=== PATIENT | male | born 1955 | race Caucasian/White ===

== ENCOUNTER → 2017-05-18 | Outpatient (CLI) | payer OTHER ==
[~2017-05-18] MED LIST: AMLO-172 PO; ATOR40TA16 PO; AUGM875 PO; BYST10TA2 PO; FOLI400T PO; METO25 PO; MULT1TAB PO; OXYC1TAB36 PO; PRED20 PO; TIZA4CAP3 PO
[2017-05-18 09:06] LABS: AUTOMATED NEUTROPHIL # 4.3 TH/MM3 (1.8-7.7); BASOPHIL # 0.1 TH/MM3 (0-0.2); BASOPHIL % 0.7 % (0.0-2.0); EOSINOPHIL # 0.1 TH/MM3 (0-0.4); EOSINOPHIL % 1.5 % (0.0-4.0); HEMOGLOBIN 13.3 GM/DL (13.0-17.0); LYMPH % 34.5 % (9.0-44.0); LYMPHOCYTE # 2.5 TH/MM3 (1.0-4.8); MEAN CELL VOLUME 86.1 FL (80.0-100.0); MEAN CORPUSCULAR HEMOGLOBIN 29.4 PG (27.0-34.0); MEAN CORPUSCULAR HGB CONC 34.2 % (32.0-36.0); MEAN PLATELET VOLUME 8.2 FL (7.0-11.0); MONO % 5.3 % (0.0-8.0); MONOCYTE # 0.4 TH/MM3 (0-0.9); PLATELET COUNT 284 TH/MM3 (150-450); RED BLOOD COUNT 4.52 MIL/MM3 (4.50-5.90); RED CELL DISTRIBUTION WIDTH 12.3 % (11.6-17.2); WHITE BLOOD COUNT 7.3 TH/MM3 (4.0-11.0)
[2017-05-18 09:21] LABS: INTERNATIONAL NORMALIZED RATIO 1.2 RATIO
[2017-05-18 09:24] LABS: BILIRUBIN, URINE NEG (NEG); BLOOD, URINE NEG (NEG); GLUCOSE,URINE NEG (NEG); KETONE, URINE NEG (NEG); MUCUS URINE FEW /lpf (OCC); NITRITE,URINE NEG (NEG); SQUAMOUS EPITHELIAL CELL URINE <1 /hpf (0-5); URINE COLOR YELLOW (YELLW/STRAW); URINE LEUKOCYTE ESTERASE TRACE (NEG)
[2017-05-18 09:29] LABS: AST (GOT) 19 U/L (15-37); BICARBONATE 25.7 MEQ/L (21.0-32.0); BLOOD UREA NITROGEN 17 MG/DL (7-18); CALCIUM 10.1 MG/DL (8.5-10.1); CHLORIDE 105 MEQ/L (98-107); CREATININE 1.03 MG/DL (0.60-1.30); GLOMERULAR FILTRATION RATE 73 ML/MIN (>89); GLUCOSE,FASTING 100 MG/DL (74-99); SODIUM (NA) 139 MEQ/L (136-145)
[2017-05-18 09:31] LABS: ALT (GPT) 17 U/L (12-78)
[2017-05-18 09:33] LABS: ALKALINE PHOSPHATASE 104 U/L (45-117); TOTAL BILIRUBIN ADULT 0.5 MG/DL (0.2-1.0); TOTAL PROTEIN 7.6 GM/DL (6.4-8.2)
--- NOTE | 2017-05-18 09:44 | RADRPT ---
EXAM DATE/TIME: 05/18/2017 09:26 [facility] COMPARISON: No previous studies available for comparison. INDICATIONS : Evaluate for pneumonia, pneumothorax, and communicable disease. Pre-op Lumbar Discectomy. MEDICAL HISTORY : None. SURGICAL HISTORY : Kyphoplasty 09/2016. ENCOUNTER: Initial ACUITY: 1 day PAIN SCORE: 0/10 LOCATION: Bilateral chest FINDINGS: PA and lateral views of the chest demonstrate a normal-sized cardiac silhouette. There is no effusion , consolidation, or pneumothorax. The bones and soft tissues demonstrate no acute abnormality. There are degenerative changes of the thoracic spine. CONCLUSION: No acute cardiopulmonary abnormality is identified. Donell Alcazar MD on May 18, 2017 at 9:42 Board Certified Radiologist. This report was verified electronically.
--- NOTE | 2017-05-18 21:55 | EKG ---
Date Performed: 05/18/2017 Time Performed: 08:49:20 PTAGE: 61 years EKG: Sinus rhythm SEPTAL MYOCARDIAL INFARCTION, OF INDETERMINATE AGE ABNORMAL ECG NO PREVIOUS TRACING DOCTOR: Raven Fernandez Interpretating Date/Time 05/18/2017 21:55:03
== END ==
LOC: CPRE 08:22
PROVIDERS: ATTEND Neurological Surgery
DX: Z01.812 Encounter for preprocedural laboratory examination (principal); Z01.810 Encounter for preprocedural cardiovascular examination; Z01.811 Encounter for preprocedural respiratory examination; M48.062 Spinal stenosis, lumbar region with neurogenic claudication
CPT/HCPCS: 36415; 71046; 80053; 81001; 85025; 85610; 85730; 87640; 87641; 93005

== ENCOUNTER 2017-05-19 06:14 | Observation (INO) | payer OTHER ==
[~2017-05-19] VITALS: Ht 185.4 cm; Wt 84.4 kg
[~2017-05-19 06:14] MED LIST changes: -AUGM875 PO; -METO25 PO; -PRED20 PO
[2017-05-19] MEDS ORDERED: ceFAZolin 2 GM PREMIX 50 ML IV SCH (06:45)
[2017-05-19] MEDS ORDERED: METOPROLOL TARTRATE 25 MG TAB PO PRN (06:45)
[2017-05-19] MEDS ORDERED: LACTATED RINGER'S 1000 ML IV PRN (06:45)
[2017-05-19] MEDS ORDERED: CHLORHEXIDINE GLUCONATE 2 % 1 PACK (2 CLOTHS) TOPICAL PRN (06:45)
[2017-05-19] MEDS ORDERED: POVIDONE IODINE 5% (ANTISEPSIS KIT) 4 APPLICATIONS EACH NARE PRN (06:45)
[2017-05-19] MEDS ORDERED: SODIUM CHLORID 0.9% 500 ML IV PRN (06:45)
[2017-05-19] MEDS ORDERED: BYST10TA2 PO (07:06)
[2017-05-19] MEDS ORDERED: AMLO-172 PO (07:06)
[2017-05-19] MEDS ORDERED: BUPIVACAINE/EPINEPHRINE 0.5% PF 30 ML VIAL ONE (07:34)
[2017-05-19] MEDS ORDERED: THROMBIN (TOPICAL) 5,000 UNIT VIAL ONE (07:34)
[2017-05-19] MEDS ORDERED: GELFOAM SIZE 100 ONE (07:34)
[2017-05-19] MEDS ORDERED: methylPREDNISolone ACETATE 40 MG/ML VIAL ONE (07:34)
[2017-05-19] MEDS ORDERED: GENTAMICIN SULFATE 80 MG/2 ML VIAL ONE (07:35)
[2017-05-19] MEDS ORDERED: ACETAMINOPHEN 1000 MG/100 ML 0 ML IV ONE (08:08)
[2017-05-19] MEDS ORDERED: ARTIFICIAL TEARS OPTH OINT 3.5 APPLIC/3.5 GM TUBO ONE (08:08)
[2017-05-19] MEDS ORDERED: FAMOTIDINE 20 MG/2 ML VIAL ONE (08:11)
[2017-05-19] MEDS: CHLORHEXIDINE GLUCONATE 2 % 1 PACK (2 CLOTHS) TOPICAL SCH (09:00)
[2017-05-19] MEDS ORDERED: FUROSEMIDE 40 MG/4 ML VIAL ONE (09:25)
[2017-05-19] MEDS ORDERED: RESP: ALBUTEROL 2.5 MG/3 ML NEB (PRN) ONE (09:42)
[2017-05-19] MEDS ORDERED: DO NOT ADM ANY ANTICOAGULANT DRUGS PRN (11:34)
[2017-05-19] MEDS: NS + KCL 20 MEQ INJ 1,000 ML IV SCH ×2 (11:47→22:12)
[2017-05-19] MEDS ORDERED: DEXAMETHASONE SOD PHOS 4 MG/ML VIAL IV ONE (12:00)
[2017-05-19] MEDS ORDERED: MORPHINE SULFATE 4 MG/ML INJ IV PUSH PRN ×2 (12:00)
[2017-05-19] MEDS ORDERED: GLYCOPYRROLATE 1 MG/5 ML SYRINGE IV PUSH ONE (12:00)
[2017-05-19] MEDS ORDERED: PROPOFOL 200 MG/20 ML AMP IV ONE (12:00)
[2017-05-19] MEDS ORDERED: ONDANSETRON HCL 4 MG/2 ML VIAL IV ONE (12:00)
[2017-05-19] MEDS ORDERED: oxyCODONE/ACETAMINOPHEN 10 MG/325 MG TAB PO PRN ×2 (12:00→13:45)
[2017-05-19] MEDS ORDERED: LACTATED RINGER'S 1000 ML INJ 1,000 ML IV ONE (12:00)
[2017-05-19] MEDS ORDERED: PHENYLEPHRINE HCL 10 MG/ML VIAL IV ONE (12:00)
[2017-05-19] MEDS ORDERED: PHENYLEPH/NS 1000 MCG/10 ML SYR IV ONE (12:00)
[2017-05-19] MEDS ORDERED: ACETAMINOPHEN/HYDROcodone 325 MG/10 MG TAB PO PRN ×2 (12:00)
[2017-05-19] MEDS ORDERED: ACETAMINOPHEN 325 MG TAB PO PRN (12:00)
[2017-05-19] MEDS ORDERED: LIDOCAINE HCL 1% PF 5 ML SYRINGE OTHER ONE (12:00)
[2017-05-19] MEDS ORDERED: ROCURONIUM INJ 50 MG/5 ML SYRINGE IV PUSH ONE (12:00)
[2017-05-19] MEDS ORDERED: NEOSTIGMINE 5 MG/5 ML SYRINGE IV PUSH ONE (12:00)
[2017-05-19] MEDS ORDERED: MIDAZOLAM HCL 2 MG/2 ML VIAL ONE (12:18)
--- NOTE | 2017-05-19 12:27 | RADRPT ---
EXAM DATE/TIME: 05/19/2017 09:38 [facility] COMPARISON: No previous studies available for comparison. INDICATIONS : L4-5 laminectomy, foraminotomy, diskectomy. MEDICAL HISTORY : SURGICAL HISTORY : None. ENCOUNTER: Initial ACUITY: 1 day PAIN SCORE: Non-responsive. LOCATION: [facility] FINDINGS: A single lateral view of the lumbar spine was performed. There is normal alignment of the vertebral bodies without evidence of subluxation. Vertebral body height and disc space height is maintained. CONCLUSION: Metallic probe directed at L4.. Tomas Lorenz MD FACR on May 19, 2017 at 12:26 Board Certified Radiologist. This report was verified electronically.
--- NOTE | 2017-05-19 12:27 | RADRPT ---
EXAM DATE/TIME: 05/19/2017 09:38 [facility] COMPARISON: No previous studies available for comparison. INDICATIONS : L3-4 laminectomy and diskectomy, foraminotomy MEDICAL HISTORY : None. SURGICAL HISTORY : None. ENCOUNTER: Initial ACUITY: 1 day PAIN SCORE: Non-responsive. LOCATION: lumbar spine . CONCLUSION: Probe at L3-L4 Tomas Lorenz MD FACR on May 19, 2017 at 12:26 Board Certified Radiologist. This report was verified electronically.
[2017-05-19] MEDS ORDERED: *morphine SULFATE 10 MG/ML PERIprocedure ONLY ONE ×2 (13:23→14:20)
[2017-05-19] MEDS: ceFAZolin 2 GM PREMIX 50 ML IV SCH ×2 (15:00→22:12)
--- NOTE | 2017-05-19 17:00 | PD.OP ---
Operative Report Date of Surgery: May 19, 2017 Preoperative Diagnosis: Lumbar spinal stenosis Postoperative Diagnosis: Lumbar spinal stenosis Procedure: L3-4, L4-5 decompressive hemilaminectomy, mesial facetectomy, foraminotomy, microsurgical resection of the disk Anesthesia: general Surgeon: Duncan Watson Seedling Sorter(s): Rose Hopper Resident Surgeon: INDICATIONS FOR THE SURGICAL PROCEDURE Mr Cook is a 61 year-old male who presented with intractable back pain and dayna evidence of L4 and L5 lower extremity radiculopathy. He failed maximum nonsurgical management including multiple modalities of conservative treatment as well as pain management interventions by an interventional pain specialist. A surgical decompression was indicated as a last resort. The [id number] details of the procedure, indications, alternatives, risks and potential complications were fully discussed with the patient. The patient fully understood. All the questions were answered. No guarantees were given. The patient voiced requesting the procedure and provided informed consents. The patient was offered the alternative of delaying the procedure and continuing with nonsurgical management. DETAILS OF THE SURGICAL PROCEDURE After the induction of general anesthesia, endotracheal intubation was performed. A Britton catheter, bilateral RADHA hose and sequential compression devices were placed and kept throughout the procedure. The patient was positioned prone on a Ghassan table over a Min frame. All pressure points were carefully padded with eggcrate mattress. The eyes were tapped shut after ointment was applied by the anesthesiologist to prevent corneal abrasion. A Pam hugger was placed over the exposed lower body to maintain control of the core body temperature. The lower lumbar region was prepped and draped in the usual sterile fashion. A spinal needle was placed on the paraspinal muscle and a cross-table lateral x-ray performed with a C-arm. The skin incision was made over the spinous process of L3, L4 and L5 along the midline. Small subcutaneous bleeders were controlled with a bipolar. The subcutaneous tissue and thoracolumbar fascia was opened with the Bovie and the spinous process of L4 and L5 were exposed. Then, using a Tejada elevator and a Bovie a subperiosteal dissection was performed over the spinous process lamina and facet at L3, L4 and L5 on the right side. A microdiscectomy self-retaining retractor was placed and an instrument was placed underneath the lamina of L5, and another cross-table lateral x-ray performed for radiological confirmation of the level. At this point in the procedure the operating microscope was draped in the usual sterile fashion and brought to the field. The rest of the surgical procedure was performed using microsurgical dissection technique with exception of the closure. Once the level was confirmed, a TPS drill brought to the field and a hemilaminectomy was performed at L3-4, and L4-L5 on the right side in standard fashion using the 4mm Kell drill bit, exposing the ligamentum flavum. The superior free border of the ligamentum flavum was from the dura with a ligament dissector and the ligamentum flavum was carefully removed with a 3 mm thin footplate Kerrison. The ligament Flavum and facets were significantly hypertrophic resulting on mass effect on the dural sac. Then, the medial aspect of the facet was drilled and undermined and the exiting L4 and L5 nerve root were identified and followed towards the foramen. A foraminotomy was performed with a 3 mm Kerrison. Then, the TPS drill was used to undermine the base of the spinous process, in order to carry out the decompression across the midline to the contralateral side. The ligamentum flavum across the midline was dissected from the dura with a ligament dissector and carefully removed with a 3 mm thin footplate Kerrison. An appropriate decompression of the dural sac and nerve root was achieved. Epidural veins located laterally to the dural sac were carefully coagulated with a bipolar and incised with microscissors. Gentle medial retraction of the dural sac allowed inspection of the disc spaces L3-4, and L4-5. The patient had a broad-based disc protusion which combined with the hypertrophic facets and ligamentun flavum was producing significant stenosis with mass effect on the dural sac and nerve root. Microdiscectomy was then deemed necessary at L4-5. The annulus fibrosus was thoroughly coagulated with the bipolar and incised with a #10 blade. Then, a microdiscectomy was carried out in the standard fashion using straight and up-biting pituitary forceps. A reverse angle curet was used to push the extruded disc fragments into the disc space so they could be removed with pituitary forceps. Special attention was placed on the middle nerve root and axilla of the nerve root where disc fragments were found, which were carefully dissected and pushed into the disc space and removed with the Kerrison. A good decompression was achieved. The disc space was then irrigated with antibiotic solution. The incision was then thoroughly irrigated with antibiotic solution and hemostasis secured with the bipolar. A Valsalva maneuver failed to show any cerebrospinal fluid leak or bleeding. The incision was irrigated and closed in layers. 0 Vicryl with interrupted sutures was used to close the thoracolumbar fascia and superficial fascia. The subcutaneous tissue was closed with 3-0 Vicryl. The skin was closed with 4-0 running subcuticular Vicryl. Dermabond was applied to the skin. At the end of the procedure, the sponge, needle and instrument counts were all correct. Estimated blood loss was less than 60 cc. No blood transfusion was given. No intraoperative complications occurred. The patient received prophylactic antibiotics. The patient was then extubated and transferred to the recovery room in stable condition. Duncan Watson MD May 19, 2017 17:00
[2017-05-19] MEDS: oxyCODONE/ACETAMINOPHEN 10 MG/325 MG TAB PO PRN ×2 (17:45→22:13)
[2017-05-19 18:10] VITALS: BP 106/57; PULSE 71; RESP 18; TEMP 97.2; O2SAT 94
[2017-05-19 19:00] VITALS: BP 108/62; PULSE 72; RESP 18; TEMP 97.9; O2SAT 96
[2017-05-19] MEDS: DOCUSATE SODIUM 100 MG CAP PO SCH (20:26)
[2017-05-19] MEDS ORDERED: VALSARTAN 160 MG TAB PO SCH (21:00)
[2017-05-19] MEDS ORDERED: NEBIVOLOL 10 MG TAB PO SCH (21:00)
[2017-05-19] MEDS ORDERED: ATORVASTATIN 40 MG TAB PO SCH (21:00)
[2017-05-20 00:15] VITALS: BP 114/57; PULSE 81; RESP 18; TEMP 98.4; O2SAT 97
[2017-05-20 04:35] VITALS: BP 119/60; PULSE 79; RESP 18; TEMP 97; O2SAT 98
[2017-05-20] MEDS: oxyCODONE/ACETAMINOPHEN 10 MG/325 MG TAB PO PRN ×2 (04:35→08:27)
[2017-05-20] MEDS: ceFAZolin 2 GM PREMIX 50 ML IV SCH (06:03)
[2017-05-20] MEDS: NS + KCL 20 MEQ INJ 1,000 ML IV SCH (06:47)
[2017-05-20 08:00] VITALS: BP 109/62; PULSE 67; RESP 18; TEMP 96.6; O2SAT 95
[2017-05-20] MEDS: DOCUSATE SODIUM 100 MG CAP PO SCH (08:24)
[2017-05-20] MEDS ORDERED: FOLIC ACID 1 MG TAB PO SCH ×2 (09:00)
[2017-05-20] MEDS: CHLORHEXIDINE GLUCONATE 2 % 1 PACK (2 CLOTHS) TOPICAL SCH (09:00)
[2017-05-20] MEDS ORDERED: PANTOPRAZOLE SOD 40 MG DELAYED RELEASE TAB PO SCH (09:00)
[2017-05-20] MEDS ORDERED: MULTIVITAMINS/MINERALS THERAPEUTIC TAB PO SCH (09:00)
--- NOTE | 2017-05-20 09:22 | HHI.DCPOC ---
Discharge Care Plan Diagnosis: (1) S/P lumbar laminectomy Goals to Promote Your Health * To prevent worsening of your condition and complications * To maintain your health at the optimal level Directions to Meet Your Goals Take your medications as prescribed Follow your dietary instruction Follow activity as directed Keep your appointments as scheduled Take your immunizations and boosters as scheduled If your symptoms worsen call your PCP, if no PCP go to Urgent Care Center or Emergency Room Smoking is Dangerous to Your Health. Avoid second hand smoke Call the 24-hour hour crisis hotline for domestic abuse at Magda Moore May 20, 2017 09:22
--- NOTE | 2017-05-20 09:23 | HHI.DS ---
Discharge Summary Admission Date May 19, 2017 at 11:55 Discharge Date: May 20, 2017 Admitting Diagnosis s/p lumbar laminectomy (1) S/P lumbar laminectomy ICD Code: Z98.890 - Other specified postprocedural states Brief History Mr. Hopkins is a 61 year-old male who presented with intractable back pain and dayna evidence of L4 and L5 lower extremity radiculopathy. He failed maximum nonsurgical management including multiple modalities of conservative treatment as well as pain management interventions by an interventional pain specialist. A surgical decompression was indicated as a last resort. Imaging Last Impressions Lumbar Spine X-Ray 05/19/17 0000 Signed Impressions: Service Date/Time: Friday, May 19, 2017 09:38 - CONCLUSION: Metallic probe directed at L4.. Tomas Lorenz MD FACR PE at Discharge Alert, no acute distress Resp: clear, no wheezing, nonlabored Facial motor symmetric conversing well, speech fluent Hospital Course Mr. Hopkins underwent a L3-4, L4-5 decompressive hemilaminectomy, mesial facetectomy, foraminotomy, microsurgical resection of the disk on May 19, 2017 for Lumbar spinal stenosis. His surgery went well. He reports improvement of his preoperative radiculopathy. He was discharged home in stable conditions. Pt Condition on Discharge: Good Discharge Disposition: Discharge Home Discharge Instructions DIET: Follow Instructions for: Heart Healthy Diet ACTIVITIES You can perform: Weight Bearing As Gisele ADDITIONAL Activity Instructio: Avoid strenuous activities, heavy lifting over 5 lbs, overhead activities, repetitive bending, twisting, pushing, pulling or any activities which might result in stress over the spine. Avoid situation that will put at risk for falls. Use assistive device as needed for walking. Wear provided back brace when out of bed. Follow up Referrals: Appointment for Follow Up with Duncan Watson MD Continued Medications: Amlodipine-Valsartan (Amlodipine-Valsartan) 10-320 Mg Tab 1 TAB PO HS for Blood Pressure Management, #30 TAB 0 Refills Atorvastatin (Atorvastatin) 40 Mg Tab 40 MG PO HS for Cholesterol Management, #30 TAB 0 Refills Folic Acid (Folic Acid) 0.4 Mg Tab 400 MCG PO DAILY for Nutritional Supplement, TAB 0 Refills Multiple Vitamins W/ Minerals (Centrum Silver Adult 50+) 0.4 Mg-300 Mcg-250 Mcg Tab 1 TAB PO DAILY Nebivolol (Bystolic) 10 Mg Tab 10 MG PO HS for Blood Pressure Management, #30 TAB 0 Refills Oxycodone-Acetaminophen (Oxycodone-Acetaminophen) 10-325 mg Tab 1 TAB PO Q6H PRN for PAIN, #60 TAB 0 Refills Tizanidine (Tizanidine) 4 Mg Cap 4 MG PO HS for Muscle Spasm, CAP 0 Refills Magda Moore May 20, 2017 09:23
[2017-05-20 09:27] VITALS: RESP 18
== END 2017-05-20 11:45 | disposition home or self-care (01) ==
LOC: HSDC 06:14 → HSDI 11:55 → N06A 17:42
PROVIDERS: ADMIT Neurological Surgery; ATTEND Neurological Surgery
DX: M48.061 Spinal stenosis, lumbar region without neurogenic claudication (principal); I10 Essential (primary) hypertension; E78.00 Pure hypercholesterolemia, unspecified; F17.200 Nicotine dependence, unspecified, uncomplicated
CPT/HCPCS: 00630; 63047; 63048; 72020; 76000; 94150; 97163; G0378; J0690; J1030; J1100; J1580; J1940; J2250; J2270; J2370; J2405; J2710; J3010; J3480; J7120; J7613; L0627; J0131